=== PATIENT | female | born 1995 | race Caucasian/White ===

== ENCOUNTER 2019-01-28 23:15 | Emergency (ER) | payer SELFPAY ==
[~2019-01-28] VITALS: Ht 160 cm; Wt 72.6 kg
[2019-01-28 23:23] VITALS: BP 114/80; Ht 160 cm; Wt 72.6 kg
== END 2019-01-29 00:26 | disposition left against medical advice (07) ==
LOC: ED 23:15
DX: Z53.21 Procedure and treatment not carried out due to patient leaving prior to being seen by health care provider (principal)